=== PATIENT | male | born 1985 | race Caucasian/White ===

== ENCOUNTER → 2016-04-15 | Outpatient (CLI) | payer OTHER | LOC: HYPER 07:00 | DX: S80.861A Insect bite (nonvenomous), right lower leg, initial encounter (principal); R21 Rash and other nonspecific skin eruption; G91.9 Hydrocephalus, unspecified; F41.9 Anxiety disorder, unspecified; F32.9 Major depressive disorder, single episode, unspecified; W57.XXXA Bitten or stung by nonvenomous insect and other nonvenomous arthropods, initial encounter; Y93.9 Activity, unspecified; Y92.9 Unspecified place or not applicable; Y99.9 Unspecified external cause status; Z72.89 Other problems related to lifestyle ==

== ENCOUNTER → 2017-04-14 | Outpatient (CLI) | payer OTHER | LOC: CAT 11:14 | DX: K57.92 Diverticulitis of intestine, part unspecified, without perforation or abscess without bleeding (principal); N28.1 Cyst of kidney, acquired ==

== ENCOUNTER → 2017-04-19 | Outpatient (CLI) | payer OTHER | LOC: ULTRA 08:16 | DX: N28.1 Cyst of kidney, acquired (principal) ==